=== PATIENT | female | born 1960 | race Caucasian/White ===

== ENCOUNTER → 2017-04-07 | Outpatient (CLI) | payer OTHER ==
[~2017-04-07] MED LIST: LEXAPRO5 MG PO; MULTIPLE VITAMI1 TAB PO; NAPROSYN500 MG PO; OYSTER SHELL C500 M3 PO; OYSTER SHELL CA1 GRA PO; PREMPRO 0.3 MG-1 TA1 PO; PRILOSEC40 M1 PO; ULTRAM50 MG PO
== END | disposition home or self-care (01) ==
LOC: MAMMO 13:12
DX: Z12.31 Encounter for screening mammogram for malignant neoplasm of breast (principal)

== ENCOUNTER → 2017-06-10 | Day surgery (SDC) | payer OTHER ==
[~2017-06-10] VITALS: Ht 165.1 cm; Wt 62.6 kg
--- NOTE | ~2017-06-10 | O ---
[place], [place] OPERATIVE NOTE NAME: CYN WALLS UNIT #: [id number] ROOM: DOCTOR: JOSELIN BREWSTER MD BIRTHDATE: [birth year] DOS: 06/10/2017 INDICATIONS: A 57-year-old patient who has presented with chief complaint of old history of colonic polyp. ALLERGIES: No known medication. FAMILY HISTORY: Colonic carcinoma in mother. PAST SURGICAL HISTORY: Tonsillectomy, hysterectomy, retinal detachment. SOCIAL HISTORY: Smoker, nonalcohol consumer. MEDICATIONS: None. PROCEDURE: Today's procedure part of investigation is colonoscopy. PREMEDICATION: Versed and Diprivan. SCOPE: Olympus forward viewing colonoscope 10L video. REPORT: After putting the patient in the left lateral position and after application of lubricant to rectal pouch and digital examination, scope was introduced; thereafter, under direct visualization, advanced through the length of colon without difficulty. Colon mucosa and vascularity carefully examined. Base of the cecum explored, appendiceal orifice identified, and ileocecal valve was defined. Tortuosity of the colon which was moderate in degree was identified. Base of cecum was photographed, ileocecal valve was defined. Air was suctioned out. The patient was extubated, tolerated procedure well. IMPRESSION: Normal colonoscopic examination except moderate tortuosity of the colon. PLAN AND DISCUSSION: Her colonic examination is adequate for the next 10 years. Follow up routinely with you in office, p.r.n. visit with us in [facility]. Thank you again for your kind referral. [place], [place] OPERATIVE NOTE NAME: CYN WALLS UNIT #: [id number] ROOM: DOCTOR: JOSELIN BREWSTER MD BIRTHDATE: [birth year] JOSELIN BREWSTER MD CM:OPRECORD:OPERATIVE NOTE 7 DONAVAN BREWSTER MD 06/10/1758 interface
[2017-06-10 08:17] VITALS: BP 124/55
[2017-06-10 09:27] VITALS: BP 99/53
[2017-06-10 09:42] VITALS: BP 108/54
[2017-06-10 09:57] VITALS: BP 100/58
== END | disposition home or self-care (01) ==
LOC: SDC 06-05 10:15
DX: Z09 Encounter for follow-up examination after completed treatment for conditions other than malignant neoplasm (principal); Z86.010 Personal history of colon polyps; Z80.0 Family history of malignant neoplasm of digestive organs; Z98.890 Other specified postprocedural states; Z90.710 Acquired absence of both cervix and uterus; F17.210 Nicotine dependence, cigarettes, uncomplicated; K63.89 Other specified diseases of intestine; Z98.51 Tubal ligation status

== ENCOUNTER → 2018-11-25 | Outpatient (CLI) | payer OTHER ==
[2018-11-25 08:58] LABS: BASO # 0.1 10*3/uL (0.0-0.1); BASO % 0.6 % (0.0-1.0); EOS # 0.1 10*3/uL (0.0-0.4); EOS % 1.6 % (1.0-4.0); HEMATOCRIT 47.5 % (37.0-47.0); HEMOGLOBIN 15.4 g/dl (12.0-16.0); LYMPH # 3.1 10*3/uL (1.3-4.4); LYMPH % 34.6 % (27.0-41.0); MEAN CORPUSCULAR HGB 28.8 pg (27.0-31.0); MEAN CORPUSCULAR HGB CONC 32.4 g/dl (33.0-37.0); MEAN PLATELET VOLUME 12.1 fl (9.6-12.3); MONO # 0.6 10*3/uL (0.1-1.0); MONO % 6.2 % (3.0-9.0); NEUT # 5.1 10*3/uL (2.3-7.9); NEUT % 56.8 % (47.0-73.0); PLATELET COUNT AUTOMATED 178 10*3/uL (130-400); RED BLOOD COUNT 5.34 10*6/uL (4.10-5.10); RED CELL DISTRI WIDTH 14.1 % (0-14.5); WHITE BLOOD COUNT 8.9 10*3/uL (4.8-10.8)
[2018-11-25 09:07] LABS: ALBUMIN 4.1 gm/dl (3.1-4.5); BUN 27 mg/dl (7-24); CHLORIDE 107 mmol/L (98-107); CHOLESTEROL 251 mg/dL (<200); CREATININE 0.92 mg/dL (0.55-1.02); POTASSIUM 4.5 mmol/L (3.5-5.1); SGOT/AST 29 IU/L (3-35); SGPT/ALT 48 U/L (12-78); SODIUM 140 mmol/L (136-145); TRIGLYCERIDES 99 mg/dl (<150); VLDL CHOLESTEROL 20 mg/dL (6-40)
[2018-11-25 09:14] LABS: ALKALINE PHOSPHATASE 86 U/L (45-117); FREE T4 0.97 ng/dl (0.76-1.46); HDL CHOLESTEROL 42 mg/dl (40-60); LDL CHOLESTEROL 189 mg/dL (9-159)
[2018-11-25 09:51] LABS: VITAMIN D, 25-HYDROXY 30.2 ng/mL (30-100)
== END | disposition home or self-care (01) ==
LOC: LAB 07:41
PROVIDERS: Internal Medicine
DX: Z13.1 Encounter for screening for diabetes mellitus (principal); Z13.21 Encounter for screening for nutritional disorder; Z13.220 Encounter for screening for lipoid disorders; M54.5 Low back pain

== ENCOUNTER → 2018-12-06 | Outpatient (CLI) | payer OTHER | END | disposition home or self-care (01) | LOC: MRI 00:17 | DX: M54.89 Other dorsalgia (principal); R20.0 Anesthesia of skin; R20.2 Paresthesia of skin ==

== ENCOUNTER → 2018-12-16 | Outpatient (CLI) | payer OTHER | END | disposition home or self-care (01) | LOC: RAD 00:58 → MAMMO 14:00 | DX: Z12.31 Encounter for screening mammogram for malignant neoplasm of breast (principal); Z13.820 Encounter for screening for osteoporosis; N95.9 Unspecified menopausal and perimenopausal disorder; Z90.710 Acquired absence of both cervix and uterus ==

== ENCOUNTER → 2022-02-10 | Outpatient (CLI) | payer OTHER | END | disposition home or self-care (01) | LOC: MAMMO 07:39 | PROVIDERS: ATTEND Internal Medicine | DX: Z12.31 Encounter for screening mammogram for malignant neoplasm of breast (principal) ==

== ENCOUNTER → 2022-02-24 | Outpatient (CLI) | payer OTHER | END | disposition home or self-care (01) | LOC: CARD 01:28 | PROVIDERS: ATTEND Internal Medicine | DX: R53.83 Other fatigue (principal) ==

== ENCOUNTER → 2024-02-17 | Outpatient (CLI) | payer OTHER | END | disposition home or self-care (01) | LOC: US 01:56 | PROVIDERS: ATTEND Internal Medicine | DX: Z12.31 Encounter for screening mammogram for malignant neoplasm of breast (principal); I70.0 Atherosclerosis of aorta; M79.604 Pain in right leg; G47.62 Sleep related leg cramps; Z87.891 Personal history of nicotine dependence ==

== ENCOUNTER → 2025-01-30 | Outpatient (CLI) | payer OTHER | END | disposition home or self-care (01) | LOC: MAMMO 02:11 | PROVIDERS: ATTEND Internal Medicine | DX: Z12.31 Encounter for screening mammogram for malignant neoplasm of breast (principal); R92.30 Dense breasts, unspecified ==

== ENCOUNTER → 2025-07-01 | Outpatient (CLI) | payer OTHER ==
[~2025-07-01] MED LIST changes: +IOHEXOL 300 MG/ML 100 ML VIAL IV ONE
== END | disposition home or self-care (01) ==
LOC: CT 00:04
PROVIDERS: ATTEND Internal Medicine
DX: R16.0 Hepatomegaly, not elsewhere classified (principal); R10.84 Generalized abdominal pain; K29.00 Acute gastritis without bleeding; K42.9 Umbilical hernia without obstruction or gangrene; I70.0 Atherosclerosis of aorta; M47.816 Spondylosis without myelopathy or radiculopathy, lumbar region; Z90.710 Acquired absence of both cervix and uterus